=== PATIENT | female | born 1980 ===

== ENCOUNTER 2017-11-17 14:35 | Observation (INO) ==
[2017-11-17] MEDS ORDERED: ONDANSETRON 4 MG/2 ML VIAL IV PRN (14:47)
[2017-11-17] MEDS ORDERED: DEXTROSE 50% 25 GM/50 ML VIAL IV PRN (14:47)
[2017-11-17] MEDS ORDERED: GLUCAGON 1 MG VIAL IM PRN (14:47)
[2017-11-17] MEDS ORDERED: ACETAMINOPHEN 325 MG TABLET PO PRN (14:47)
[2017-11-17 16:32] LABS: Basophils % 0.3 % (0.0-0.8); Eosinophils # 0.1 10*3/uL (0.0-0.87); Eosinophils % 0.9 % (0.00-10.9); Hematocrit 39.5 VOL% (35.7-47.0); Hemoglobin 13.2 GM/DL (12.0-16.0); Immature Granulocytes % 0.4 %; Immature Granulocytes Absolute 0.04 #; Lymphocytes # 1.9 10*3/uL (1.4-4.0); Lymphocytes % 20.3 % (21.3-54.2); Mean Corpuscular HGB Conc 33.4 GM/DL (32-36); Mean Corpuscular Hemoglobin 30 PG (27-34); Mean Platelet Volume 10.6 FL (9.6-12.0); Monocytes # 0.6 10*3/uL (0.11-0.8); Monocytes % 6.4 % (1.7-12.7); Neutrophils # 6.6 10*3/uL (1.4-7.4); Neutrophils % 71.7 % (38.7-73.9); Platelet Count 240 T/CUMM (130-400); Red Blood Count 4.39 MC/CUMM (3.8-5.5); Red Cell Distribution Width 14.2 % (9.3-17.3); White Blood Count 9.2 T/CUMM (4-12)
[2017-11-17] MEDS ORDERED: CEFTAROLINE 600 MG in SODIUM CHLORIDE 0.9% 100 ML IV STA (16:46)
[2017-11-17 16:53] LABS: Albumin 3.1 G/DL (3.4-5.0); Bilirubin,Total 0.6 MG/DL (0.2-1.0); Calcium 8.6 MG/DL (8.5-10.1); Total Protein 7.7 G/DL (6.4-8.3)
[2017-11-17] MEDS: INSULIN LISPRO 100 UNIT/ML SUBCUT SCH (17:10)
[2017-11-17] MEDS: SODIUM CHLORIDE 0.45% 1,000 ML IV SCH (17:29)
[2017-11-17] MEDS: INSULIN REGULAR 100 UNIT/ML SUBCUT SCH (23:10)
[2017-11-18] MEDS: SODIUM CHLORIDE 0.45% 1,000 ML IV SCH (06:25)
[2017-11-18] MEDS: INSULIN REGULAR 100 UNIT/ML SUBCUT SCH ×4 (08:50→22:40)
[2017-11-18] MEDS: INSULIN LISPRO 100 UNIT/ML SUBCUT SCH ×2 (08:51→18:02)
[2017-11-18] MEDS: PANTOPRAZOLE 40 MG TABLET PO SCH (08:52)
[2017-11-18] MEDS: LISINOPRIL 10 MG TABLET PO SCH (08:52)
[2017-11-18] MEDS: CARVEDILOL 3.125 MG TABLET PO SCH ×2 (08:52→22:35)
[2017-11-18] MEDS ORDERED: ROPIVACAINE 0.5% 30 ML VIAL ONE (09:00)
[2017-11-18] MEDS ORDERED: GENTAMICIN 0.1% CREAM 15 GM TUBE TOP ONE (09:55)
[2017-11-18] MEDS ORDERED: HYDROmorphone 2 MG/1 ML VIAL IV PRN (10:14)
[2017-11-18] MEDS ORDERED: PROPOFOL 200 MG/20 ML VIAL IV ONE (10:26)
[2017-11-18] MEDS ORDERED: ONDANSETRON 4 MG/2 ML VIAL ONE (10:27)
[2017-11-18] MEDS ORDERED: MIDAZOLAM 2 MG/2 ML VIAL ONE (10:27)
[2017-11-18] MEDS ORDERED: fentaNYL 100 MCG/2 ML VIAL ONE (10:27)
[2017-11-18] MEDS ORDERED: CARVEDILOL 3.125 MG TABLET PO SCH (21:00)
[2017-11-18] MEDS: SULFAMETHOX/TRIMETHOPRIM 800-160 MG TABLET PO SCH (22:34)
[2017-11-18] MEDS: glyBURIDE/METFORMIN 5-500 MG TABLET PO SCH (22:34)
[2017-11-19 03:13] LABS: Basophils % 0.3 % (0.0-0.8); Eosinophils # 0.2 10*3/uL (0.0-0.87); Eosinophils % 2.6 % (0.00-10.9); Hematocrit 35.5 VOL% (35.7-47.0); Hemoglobin 12.2 GM/DL (12.0-16.0); Immature Granulocytes % 0.3 %; Immature Granulocytes Absolute 0.02 #; Lymphocytes # 2.4 10*3/uL (1.4-4.0); Lymphocytes % 30.1 % (21.3-54.2); Mean Corpuscular HGB Conc 34.4 GM/DL (32-36); Mean Corpuscular Hemoglobin 30 PG (27-34); Mean Corpuscular Volume 87.4 FL (87-102); Mean Platelet Volume 10.9 FL (9.6-12.0); Monocytes # 0.7 10*3/uL (0.11-0.8); Monocytes % 8.3 % (1.7-12.7); Neutrophils # 4.7 10*3/uL (1.4-7.4); Neutrophils % 58.4 % (38.7-73.9); Platelet Count 231 T/CUMM (130-400); Red Blood Count 4.06 MC/CUMM (3.8-5.5); Red Cell Distribution Width 13.8 % (9.3-17.3)
[2017-11-19 03:40] LABS: Calcium 8.2 MG/DL (8.5-10.1); Osmolality,Calculated 277.7 MOS/KG (273-304); Potassium 3.8 MMOL/L (3.5-5.1)
[2017-11-19] MEDS: ENOXAPARIN 40 MG/0.4 ML SYRINGE SUBCUT SCH (05:33)
[2017-11-19] MEDS: CARVEDILOL 3.125 MG TABLET PO SCH ×2 (08:37→21:05)
[2017-11-19] MEDS: PANTOPRAZOLE 40 MG TABLET PO SCH (08:37)
[2017-11-19] MEDS: glyBURIDE/METFORMIN 5-500 MG TABLET PO SCH ×2 (08:37→21:05)
[2017-11-19] MEDS: SULFAMETHOX/TRIMETHOPRIM 800-160 MG TABLET PO SCH ×2 (08:38→21:05)
[2017-11-19] MEDS: LISINOPRIL 10 MG TABLET PO SCH (08:38)
[2017-11-19] MEDS: INSULIN REGULAR 100 UNIT/ML SUBCUT SCH ×4 (08:40→21:05)
[2017-11-19] MEDS: INSULIN LISPRO 100 UNIT/ML SUBCUT SCH ×2 (08:41→17:43)
[2017-11-19] MEDS: FEXOFENADINE 180 MG TABLET PO SCH (08:41)
[2017-11-19] MEDS ORDERED: LISINOPRIL 10 MG TABLET PO SCH (09:00)
[2017-11-19] MEDS: CEFTAROLINE 600 MG in SODIUM CHLORIDE 0.9% 100 ML IV SCH (13:20)
[2017-11-19] MEDS: SODIUM CHLORIDE 0.45% 1,000 ML IV SCH (13:22)
[2017-11-20] MEDS: CEFTAROLINE 600 MG in SODIUM CHLORIDE 0.9% 100 ML IV SCH ×2 (00:55→14:24)
[2017-11-20] MEDS: ENOXAPARIN 40 MG/0.4 ML SYRINGE SUBCUT SCH (03:41)
[2017-11-20] MEDS: PANTOPRAZOLE 40 MG TABLET PO SCH (09:05)
[2017-11-20] MEDS: CARVEDILOL 3.125 MG TABLET PO SCH ×2 (09:05→20:55)
[2017-11-20] MEDS: glyBURIDE/METFORMIN 5-500 MG TABLET PO SCH ×2 (09:05→20:55)
[2017-11-20] MEDS: LISINOPRIL 10 MG TABLET PO SCH (09:05)
[2017-11-20] MEDS: INSULIN REGULAR 100 UNIT/ML SUBCUT SCH ×4 (09:06→21:02)
[2017-11-20] MEDS: SULFAMETHOX/TRIMETHOPRIM 800-160 MG TABLET PO SCH ×2 (09:06→20:55)
[2017-11-20] MEDS: FEXOFENADINE 180 MG TABLET PO SCH (09:10)
[2017-11-20] MEDS: INSULIN LISPRO 100 UNIT/ML SUBCUT SCH ×2 (09:10→17:03)
[2017-11-21] MEDS: CEFTAROLINE 600 MG in SODIUM CHLORIDE 0.9% 100 ML IV SCH ×2 (00:06→13:42)
[2017-11-21] MEDS: ENOXAPARIN 40 MG/0.4 ML SYRINGE SUBCUT SCH (05:12)
[2017-11-21] MEDS: INSULIN REGULAR 100 UNIT/ML SUBCUT SCH ×3 (08:41→16:00)
[2017-11-21] MEDS: INSULIN LISPRO 100 UNIT/ML SUBCUT SCH ×2 (08:56→16:00)
[2017-11-21] MEDS: SULFAMETHOX/TRIMETHOPRIM 800-160 MG TABLET PO SCH (09:03)
[2017-11-21] MEDS: FEXOFENADINE 180 MG TABLET PO SCH (09:03)
[2017-11-21] MEDS: LISINOPRIL 10 MG TABLET PO SCH (09:03)
[2017-11-21] MEDS: glyBURIDE/METFORMIN 5-500 MG TABLET PO SCH (09:03)
[2017-11-21] MEDS: CARVEDILOL 3.125 MG TABLET PO SCH (09:03)
[2017-11-21] MEDS: PANTOPRAZOLE 40 MG TABLET PO SCH (09:04)
[2017-11-21 11:01] VITALS: BP 154/77
== END 2017-11-21 16:20 ==
LOC: N.ADMINP → N.3E 15:56
PROVIDERS: ADMIT Specialist; ATTEND Specialist

== ENCOUNTER 2018-03-27 11:33 | Inpatient (IN) ==
[2018-03-27 14:29] LABS: Basophils % 0.3 % (0.0-0.8); Eosinophils # 0.1 10*3/uL (0.0-0.87); Eosinophils % 1.3 % (0.00-10.9); Hematocrit 38.9 VOL% (35.7-47.0); Hemoglobin 13.3 GM/DL (12.0-16.0); Immature Granulocytes % 0.2 %; Immature Granulocytes Absolute 0.02 #; Lymphocytes % 21.1 % (21.3-54.2); Mean Corpuscular HGB Conc 34.2 GM/DL (32-36); Mean Corpuscular Hemoglobin 30 PG (27-34); Mean Corpuscular Volume 88.6 FL (87-102); Mean Platelet Volume 10.6 FL (9.6-12.0); Monocytes # 0.5 10*3/uL (0.11-0.8); Monocytes % 5.9 % (1.7-12.7); Neutrophils # 6.6 10*3/uL (1.4-7.4); Neutrophils % 71.2 % (38.7-73.9); Platelet Count 221 T/CUMM (130-400); Red Blood Count 4.39 MC/CUMM (3.8-5.5); Red Cell Distribution Width 13.2 % (9.3-17.3); White Blood Count 9.2 T/CUMM (4-12)
[2018-03-27] MEDS ORDERED: cloNIDine 0.1 MG TABLET PO STA (14:34)
[2018-03-27] MEDS ORDERED: cloNIDine 0.1 MG TABLET ONE (14:42)
[2018-03-27 14:49] LABS: Bilirubin,Total 0.4 MG/DL (0.2-1.0); Calcium 8.6 MG/DL (8.5-10.1); Osmolality,Calculated 280.8 MOS/KG (273-304); Potassium 3.8 MMOL/L (3.5-5.1); Total Protein 7.6 G/DL (6.4-8.3)
[2018-03-27] MEDS ORDERED: GLUCAGON 1 MG VIAL IM PRN (14:54)
[2018-03-27] MEDS ORDERED: ACETAMINOPHEN 325 MG TABLET PO PRN (14:54)
[2018-03-27] MEDS ORDERED: ONDANSETRON 4 MG/2 ML VIAL IV PRN (14:54)
[2018-03-27] MEDS ORDERED: ALUMINUM/MAGNES/SIMETH MAX STR 30 ML UDCUP PO PRN (14:54)
[2018-03-27] MEDS ORDERED: HYDROmorphone 2 MG/1 ML VIAL IV PRN (14:54)
[2018-03-27] MEDS ORDERED: DEXTROSE 50% 25 GM/50 ML VIAL IV PRN (14:54)
[2018-03-27] MEDS ORDERED: CHLORHEXIDINE 4% SOLN 118 ML BOTTLE TOP ONE (15:01)
[2018-03-27] MEDS: SODIUM CHLORIDE 0.45% 1,000 ML IV SCH (17:10)
[2018-03-27] MEDS: metroNIDAZOLE INJ 500 MG in PREMIX 1 EACH IV SCH ×2 (17:10→23:39)
[2018-03-27] MEDS: INSULIN REGULAR 100 UNIT/ML SUBCUT SCH ×2 (17:11→21:03)
[2018-03-27] MEDS: PIPERACILLIN/TAZOBACTAM 3,375 MG in SODIUM CHLORIDE 0.9% 100 ML IV SCH (18:21)
[2018-03-27] MEDS: SODIUM HYPOCHLORITE 0.25% IRRIG 473 ML BOTTLE TOP SCH (19:24)
[2018-03-27] MEDS: BACITRACIN OINT 0.9 GM PACK TOP SCH (19:24)
[2018-03-27] MEDS: DOCUSATE SODIUM 100 MG CAPSULE PO SCH (21:02)
[2018-03-27] MEDS: glyBURIDE/METFORMIN 5-500 MG TABLET PO SCH (21:02)
[2018-03-27] MEDS: GABAPENTIN 100 MG CAPSULE PO SCH (21:02)
[2018-03-27] MEDS: CARVEDILOL 3.125 MG TABLET PO SCH (21:02)
[2018-03-28] MEDS: PIPERACILLIN/TAZOBACTAM 3,375 MG in SODIUM CHLORIDE 0.9% 100 ML IV SCH ×3 (01:06→17:14)
[2018-03-28] MEDS: SODIUM CHLORIDE 0.45% 1,000 ML IV SCH ×2 (02:50→23:38)
[2018-03-28 08:13] LABS: Basophils % 0.4 % (0.0-0.8); Eosinophils # 0.2 10*3/uL (0.0-0.87); Eosinophils % 2.2 % (0.00-10.9); Hematocrit 38.1 VOL% (35.7-47.0); Hemoglobin 13.1 GM/DL (12.0-16.0); Immature Granulocytes % 0.4 %; Immature Granulocytes Absolute 0.03 #; Lymphocytes # 1.9 10*3/uL (1.4-4.0); Lymphocytes % 27.1 % (21.3-54.2); Mean Corpuscular HGB Conc 34.4 GM/DL (32-36); Mean Corpuscular Hemoglobin 30 PG (27-34); Mean Corpuscular Volume 87.2 FL (87-102); Mean Platelet Volume 10.8 FL (9.6-12.0); Monocytes # 0.5 10*3/uL (0.11-0.8); Monocytes % 6.6 % (1.7-12.7); Neutrophils # 4.5 10*3/uL (1.4-7.4); Neutrophils % 63.3 % (38.7-73.9); Platelet Count 201 T/CUMM (130-400); Red Blood Count 4.37 MC/CUMM (3.8-5.5); Red Cell Distribution Width 13.4 % (9.3-17.3); White Blood Count 7.1 T/CUMM (4-12)
[2018-03-28 08:45] LABS: Calcium 8.2 MG/DL (8.5-10.1); Osmolality,Calculated 280.7 MOS/KG (273-304); Potassium 4.1 MMOL/L (3.5-5.1)
[2018-03-28] MEDS: metroNIDAZOLE INJ 500 MG in PREMIX 1 EACH IV SCH ×3 (09:52→23:38)
[2018-03-28] MEDS: INSULIN REGULAR 100 UNIT/ML SUBCUT SCH ×4 (09:52→21:01)
[2018-03-28] MEDS: ENOXAPARIN 40 MG/0.4 ML SYRINGE SUBCUT SCH (09:52)
[2018-03-28] MEDS: LISINOPRIL 20 MG TABLET PO SCH (09:53)
[2018-03-28] MEDS: CARVEDILOL 3.125 MG TABLET PO SCH ×2 (09:53→17:12)
[2018-03-28] MEDS: DOCUSATE SODIUM 100 MG CAPSULE PO SCH ×2 (09:53→21:01)
[2018-03-28] MEDS: glyBURIDE/METFORMIN 5-500 MG TABLET PO SCH ×2 (09:53→21:00)
[2018-03-28] MEDS: GABAPENTIN 100 MG CAPSULE PO SCH ×3 (09:53→21:01)
[2018-03-28] MEDS: PANTOPRAZOLE 40 MG TABLET PO SCH (09:53)
[2018-03-28] MEDS: BACITRACIN OINT 0.9 GM PACK TOP SCH (17:13)
[2018-03-28] MEDS: SODIUM HYPOCHLORITE 0.25% IRRIG 473 ML BOTTLE TOP SCH (17:14)
[2018-03-28] MEDS: SKIN HEALING OINT (AQUAPHOR) 50 GM TUBE TOP PRN (17:14)
[2018-03-29] MEDS: PIPERACILLIN/TAZOBACTAM 3,375 MG in SODIUM CHLORIDE 0.9% 100 ML IV SCH ×3 (01:06→17:04)
[2018-03-29] MEDS: SODIUM CHLORIDE 0.45% 1,000 ML IV SCH (06:28)
[2018-03-29] MEDS: LISINOPRIL 20 MG TABLET PO SCH (09:38)
[2018-03-29] MEDS: CARVEDILOL 3.125 MG TABLET PO SCH ×2 (09:38→17:10)
[2018-03-29] MEDS: GABAPENTIN 100 MG CAPSULE PO SCH ×2 (09:38→15:30)
[2018-03-29] MEDS: PANTOPRAZOLE 40 MG TABLET PO SCH (09:38)
[2018-03-29] MEDS: glyBURIDE/METFORMIN 5-500 MG TABLET PO SCH (09:38)
[2018-03-29] MEDS: DOCUSATE SODIUM 100 MG CAPSULE PO SCH (09:38)
[2018-03-29] MEDS: BACITRACIN OINT 0.9 GM PACK TOP SCH (09:39)
[2018-03-29] MEDS: ENOXAPARIN 40 MG/0.4 ML SYRINGE SUBCUT SCH (09:39)
[2018-03-29] MEDS: INSULIN REGULAR 100 UNIT/ML SUBCUT SCH ×3 (09:39→17:09)
[2018-03-29] MEDS: metroNIDAZOLE INJ 500 MG in PREMIX 1 EACH IV SCH ×2 (09:41→16:27)
[2018-03-29] MEDS: SODIUM HYPOCHLORITE 0.25% IRRIG 473 ML BOTTLE TOP SCH (09:42)
[2018-03-29] MEDS: SKIN HEALING OINT (AQUAPHOR) 50 GM TUBE TOP PRN (09:42)
[2018-03-29 17:09] VITALS: BP 151/86
== END 2018-03-29 17:45 | disposition home or self-care (01) | DRG 638 ==
LOC: N.ED 11:33 → N.EDINP 14:54 → N.3E 16:30
PROVIDERS: ADMIT Specialist; ATTEND Specialist